=== PATIENT | female | born 1955 | race Caucasian/White ===

== ENCOUNTER 2021-03-05 21:24 | Emergency (ER) | payer MEDICARE ==
[~2021-03-05 21:24] MED LIST: ACYCLOVIR200 MG PO; AMOXICILLIN500 MG PO; BACTRIM DS TAB1 EACH PO; BENTYL 20MG TAB20 MG PO; CELECOXIB200 MG PO; CYMBALTA20 MG PO; CYMBALTA30 MG PO; CYMBALTA60 MG PO; DEPAKOTE125 MG PO; EFFEXOR XR 150150 MG PO; FERREX 150150 MG PO; HYZAAR 50-12.51 EACH PO; L-LYSINE500 MG PO; LASIX20 MG PO; LASIX40 MG PO; MIRAPEX1.5 MG PO; OXYCODONE-ACET1 EACH PO; PROTONIX20 MG PO; ROBAXIN-750750 MG PO; SENNA LAXATIVE8.6 MG PO; SINGULAIR10 MG PO; SYNTHROID50 MCG PO; TEMAZEPAM30 MG PO; WELLBUTRIN XL300 M1 PO; ZANAFLEX2 MG PO; ZAROXOLYN/DIULO5 MG PO; ZYRTEC-D TABLE1 EACH PO
[2021-03-05 22:28] LABS: HEMOGLOBIN 12.6 gm/dl (12.3-15.3); RED BLOOD COUNT 3.9 M/UL (4.00-5.10); WHITE BLOOD COUNT 7.1 K/UL (4.5-11.0)
[2021-03-05 22:48] LABS: BUN/CREATININE RATIO 21 (0-10)
[2021-03-06] MEDS ORDERED: AUGMENTIN 875-1 EACH PO (00:17)
== END 2021-03-06 00:23 | disposition home or self-care (01) ==
LOC: ER1 21:24
PROVIDERS: Physician Assistant Medical
DX: U07.1 COVID-19 (principal); J44.1 Chronic obstructive pulmonary disease with (acute) exacerbation; Z90.710 Acquired absence of both cervix and uterus
CPT/HCPCS: 36415; 71045; 80053; 85025; 99283; U0002